=== PATIENT | female | born 1965 | race Caucasian/White ===

== ENCOUNTER 2016-06-16 20:37 | Emergency (ER) | payer OTHER ==
--- NOTE | ~2016-06-16 | CR230 ---
[facility] of [facility] & [facility] RADIOLOGY TEXT RESULTS PATIENT: JOSE VITAL LOCATION: [facility] : 61 UNIT #: [id number] AGE: [address]: HOUSTON JONES APRN SEX: F ORDER DR: [id number] [facility] [address] [place], [place] [address] [id number] E MR#: [id number] Acc #: [id number] NAME: JOSE VITAL : 1965 SEX: F STUDY DATE/TIME: 06/16/2016 19:49 UNIT: [facility] ROOM: STUDY DESCRIPTION: CR Shoulder Min 2 View Rt Attending Physician: Houston Jones Aprn Ordering Physician: Houston Jones Aprn Primary Care Physician: Augustine Sosa M.D. MEDICAL IMAGING REPORT This report is preliminary unless electronic signature is present EXAM Right shoulder radiograph, 06/16/2013. INDICATION Severe right shoulder pain and decreased range of motion. Fall at home. FINDINGS 2 views of the right shoulder in internal and external rotation. There is a comminuted, however, minimally displaced fracture involving the proximal right humerus. There is a transverse fracture through the surgical neck. The greater tuberosity is avulsed. The humeral head articulates normally with the glenoid. There is some mild osteoarthropathy at the AC joint. IMPRESSION Comminuted fracture of the proximal right humerus (near 3 part). Dictated by... Adam Pearson M.D. THIS IS AN ELECTRONICALLY VERIFIED REPORT Adam Pearson M.D. at 06/17/2016 12:15 PM FRANCIS/emelyn TD: 06/17/2016 10:16 JOB #: [id number] MEDICAL IMAGING REPORT COPY
[~2016-06-16 20:37] MED LIST: ADVAIR 250-501 EAC1 IH; CARVEDILOL12.5 MG PO; DESYREL100 MG PO; LITHIUM PO; MARYS MAGIC BUTT CRE; NIFEREX-150 FO150 MG PO; PREVACID PO; SEROQUEL PO; ZYRTEC10 M2 PO
[2016-09-24] MEDS ORDERED: VENTOLIN (08:44)
[2016-09-24] MEDS ORDERED: ADVAIR 250-501 EAC1 INH (08:44)
[2016-09-24] MEDS ORDERED: AMBIEN10 MG PO (08:45)
[2016-09-24] MEDS ORDERED: ZOLOFT100 MG PO (08:45)
[2016-09-24] MEDS ORDERED: LITHIUM PO (08:45)
[2016-09-24] MEDS ORDERED: ZYRTEC10 M1 PO (08:45)
[2016-09-24] MEDS ORDERED: IBUPROFEN800 MG PO (08:46)
[2016-09-24] MEDS ORDERED: LORTAB 10-3251 EACH PO (08:46)
[2016-09-24] MEDS ORDERED: HUMIRA CRO40 MG/0.8 (08:47)
[2016-09-24] MEDS ORDERED: MULTIPLE VITAM1 EAC1 (08:48)
== END 2016-06-16 21:45 | disposition home or self-care (01) ==
LOC: CFTX 20:37
DX: S42.201A Unspecified fracture of upper end of right humerus, initial encounter for closed fracture (principal); S42.211A Unspecified displaced fracture of surgical neck of right humerus, initial encounter for closed fracture; I10 Essential (primary) hypertension; K21.9 Gastro-esophageal reflux disease without esophagitis; F31.9 Bipolar disorder, unspecified; F17.210 Nicotine dependence, cigarettes, uncomplicated; W18.30XA Fall on same level, unspecified, initial encounter; Y92.009 Unspecified place in unspecified non-institutional (private) residence as the place of occurrence of the external cause
CPT/HCPCS: 73030; 99283

== ENCOUNTER 2016-06-20 17:20 | Emergency (ER) | payer OTHER ==
--- NOTE | ~2016-06-20 | CR63 ---
[facility] A Service of [facility] & [facility] RADIOLOGY TEXT RESULTS PATIENT: JOSE VITAL LOCATION: [facility] : 61 UNIT #: [id number] AGE: [address]: Natacha Soto SEX: F ORDER DR: [id number] [facility] [address] [place], [place] [address] [id number] E MR#: [id number] Acc #: [id number] NAME: JOSE VITAL : 1965 SEX: F STUDY DATE/TIME: 06/20/2016 16:43 UNIT: [facility] ROOM: STUDY DESCRIPTION: CR Chest 2 View Attending Physician: Natacha Soto P.A.-C. Ordering Physician: Natacha Soto P.A.-C. Primary Care Physician: Augustine Sosa M.D. MEDICAL IMAGING REPORT This report is preliminary unless electronic signature is present EXAM Chest x-ray 2 views, 06/20/2016 HISTORY Chest pain, short of air, cough, congestion and wheezing starting 2-5 weeks ago. History of a right humerus fracture. COMMENT 2 views of the chest are reviewed. Comparison 08/09/2014. Partly seen is a fracture of the surgical neck of the humerus on the right consistent with provided history. The heart size is normal. There is no acute congestive failure or pneumothorax. There is no pleural effusion. There are vkqx-of-qqjhdnvf thoracic degenerative changes. No pleural effusion is suspected. IMPRESSION 1. No active disease is seen in the chest. 2. Partly seen is the patient's known right proximal humerus fracture. There are multiple healed bilateral rib fractures with some deformity more apparent on the left than the right. These are chronic. Dictated by... Violette Ashley M.D. THIS IS AN ELECTRONICALLY VERIFIED REPORT Violette Ashley M.D. at 06/22/2016 7:46 AM WANDY/mojgan TD: 06/21/2016 22:49 JOB #: [id number] [facility] A Service of [facility] & [facility] RADIOLOGY TEXT RESULTS PATIENT: JOSE VITAL LOCATION: [facility] : 61 UNIT #: [id number] AGE: [address]: Natacha Soto SEX: F ORDER DR: MEDICAL IMAGING REPORT COPY
[2016-09-24] MEDS ORDERED: VENTOLIN (08:44)
[2016-09-24] MEDS ORDERED: ADVAIR 250-501 EAC1 INH (08:44)
[2016-09-24] MEDS ORDERED: ZOLOFT100 MG PO (08:45)
[2016-09-24] MEDS ORDERED: LITHIUM PO (08:45)
[2016-09-24] MEDS ORDERED: ZYRTEC10 M1 PO (08:45)
[2016-09-24] MEDS ORDERED: AMBIEN10 MG PO (08:45)
[2016-09-24] MEDS ORDERED: IBUPROFEN800 MG PO (08:46)
[2016-09-24] MEDS ORDERED: LORTAB 10-3251 EACH PO (08:46)
[2016-09-24] MEDS ORDERED: HUMIRA CRO40 MG/0.8 (08:47)
[2016-09-24] MEDS ORDERED: MULTIPLE VITAM1 EAC1 (08:48)
== END 2016-06-20 18:25 | disposition home or self-care (01) ==
LOC: CFTX 17:20
DX: J20.9 Acute bronchitis, unspecified (principal); J45.909 Unspecified asthma, uncomplicated; I10 Essential (primary) hypertension; F31.9 Bipolar disorder, unspecified; F42.9 Obsessive-compulsive disorder, unspecified; F17.210 Nicotine dependence, cigarettes, uncomplicated; Z90.49 Acquired absence of other specified parts of digestive tract; Z98.890 Other specified postprocedural states; Z88.8 Allergy status to other drugs, medicaments and biological substances
CPT/HCPCS: 71020; 94640; 99283

== ENCOUNTER → 2016-08-18 | Outpatient (CLI) | payer OTHER ==
[~2016-08-18] MED LIST changes: +ADVAIR 250-501 EAC1 INH; +AMBIEN10 MG PO; +HUMIRA CRO40 MG/0.8; +IBUPROFEN800 MG PO; +LORTAB 10-3251 EACH PO; +MULTIPLE VITAM1 EAC1; +VENTOLIN; +ZOLOFT100 MG PO; +ZYRTEC10 M1 PO
--- NOTE | ~2016-08-18 | MY11 ---
[facility] A Service of [facility] / [facility] RADIOLOGY TEXT RESULTS PATIENT: JOSE VITAL LOCATION: [facility] : 61 UNIT #: [id number] AGE: [address]: Augustine Sosa MD SEX: F ORDER DR: [id number] [facility] [address] [place], [place] [address] [id number] O MR#: [id number] Acc #: [id number] NAME: JOSE VITAL. : 1965 SEX: F STUDY DATE/TIME: 08/18/2016 10:35 UNIT: [facility] ROOM: STUDY DESCRIPTION: MY Mammogram Screening Dig Jose Attending Physician: Augustine Soas M.D. Ordering Physician: Augustine Sosa M.D. Primary Care Physician: Augustine Sosa M.D. MEDICAL IMAGING REPORT This report is preliminary unless electronic signature is present EXAM Digital screening mammogram, 08/18/2016 HISTORY 51 year old woman no risk elevation. Annual screening. COMPARISON Mammograms date to 11/18/2007 with most recent screening 11/16/2014. FINDINGS Digital imaging of each breast was completed utilizing screening protocol. Review includes FDA-approved CAD device. Breast parenchyma is dense and confined to upper outer quadrants of each breast. Slight dominance is again noted on the right. I see no interval occurring mass. There are no suspicious microcalcifications and no architectural deformity. IMPRESSION Stable benign mammogram. Annual screening recommended. Patients over the age of 40 are entered into a reminder system with target due date for the next mammogram. A result letter will also be sent to the patient. BIRADS: 2 Benign Finding Dictated by... Porter Chavarria M.D. THIS IS AN ELECTRONICALLY VERIFIED REPORT Porter Chavarria M.D. at 08/18/2016 2:01 PM Buddy TD: 08/18/2016 12:59 [facility] A Service [facility] RADIOLOGY TEXT RESULTS PATIENT: JOSE VITAL LOCATION: [place] #: [id number] : 61 UNIT #: [id number] AGE: [address]: Augustine Sosa MD SEX: F ORDER DR: JOHAN #: [id number] MEDICAL IMAGING REPORT Page 1 of 1 COPY
== END | disposition home or self-care (01) ==
LOC: CWCC 10:25
DX: Z12.31 Encounter for screening mammogram for malignant neoplasm of breast (principal)
CPT/HCPCS: G0202

== ENCOUNTER → 2016-09-24 | Day surgery (SDC) | payer OTHER ==
--- NOTE | ~2016-09-24 | OR ---
Unit #: [id number] #: [id number] Patient: JOSE VITAL [id number] [address] [place], [place] [address] [id number] O MR#: [id number] NAME: JOSE VITAL ROOM: Date of Procedure: 09/24/2016 Admission Date: 09/24/2016 Surgeon: Fred Fulton M.D. : 1965 Attending Physician: Fred Fulton M.D. Primary Care Physician: Augustine Sosa M.D. OPERATIVE REPORT PROCEDURE PERFORMED Colonoscopy to cecum. INDICATIONS FOR PROCEDURE A 51-year-old with average risk for colorectal cancer. MEDICATIONS Monitored anesthesia. POSTOPERATIVE FINDINGS 1. Colonoscopy completed to cecum. Good prep. 2. No polyps or masses. 3. Small hemorrhoids. PLAN Repeat colonoscopy in 10 years. DESCRIPTION OF PROCEDURE The patient was explained of the procedure, risks, and benefits along with the risks and benefits of anesthesia. She was brought to the endoscopy room. Propofol anesthesia was given. Rectal exam was done, which was normal. Colonoscope was lubricated, passed up the rectum, advanced under direct vision all the way to the cecum. Cecum was identified by ileocecal valve and appendiceal orifice. I then started to pull the scope out carefully looking. No polyps, masses, or colitis were seen. Mucosa was normal and heathy. She tolerated it well. No major complications were seen. Dictated by... Bob Solis/bryce TD: 09/24/2016 17:17 JOB #: [id number] CC: Jakob Nicolas M.D. Unit #: [id number] #: [id number] Patient: JOSE VITAL OPERATIVE REPORT Page 1 of 1 X Fred Fulton MD X PROCEDURE OPERATIVE NOTE
== END | disposition home or self-care (01) ==
LOC: COPS 07:56
PROVIDERS: Internal Medicine
PROC: 0DJD8ZZ Inspection of Lower Intestinal Tract, Via Natural or Artificial Opening Endoscopic (ICD-10-PCS; principal; 2016-09-24 09:00)
DX: Z12.11 Encounter for screening for malignant neoplasm of colon (principal); K64.9 Unspecified hemorrhoids; K21.9 Gastro-esophageal reflux disease without esophagitis; E66.9 Obesity, unspecified; Z68.37 Body mass index [BMI] 37.0-37.9, adult; D64.9 Anemia, unspecified; J44.9 Chronic obstructive pulmonary disease, unspecified; J45.909 Unspecified asthma, uncomplicated; F17.200 Nicotine dependence, unspecified, uncomplicated; Z79.899 Other long term (current) drug therapy; Z79.1 Long term (current) use of non-steroidal anti-inflammatories (NSAID); Z87.09 Personal history of other diseases of the respiratory system; Z88.8 Allergy status to other drugs, medicaments and biological substances; Z90.49 Acquired absence of other specified parts of digestive tract; Z98.890 Other specified postprocedural states
CPT/HCPCS: J2250

== ENCOUNTER 2016-10-06 02:36 | Emergency (ER) | payer OTHER ==
--- NOTE | ~2016-10-06 | CR127 ---
[facility] A Service of [facility] & [facility] RADIOLOGY TEXT RESULTS PATIENT: JOSE VITAL LOCATION: [facility] : 61 UNIT #: [id number] AGE: [address]: HOUSTON JONES APRN SEX: F ORDER DR: [id number] [facility] [address] [place], [place] [address] [id number] E MR#: [id number] Acc #: [id number] NAME: JSOE VITAL : 1965 SEX: F STUDY DATE/TIME: 10/06/2016 3:16 UNIT: [facility] ROOM: STUDY DESCRIPTION: CR Foot Complete Min 3 View Rt Attending Physician: Houston Jones Aprn Ordering Physician: Houston Jones Aprn Primary Care Physician: Augustine Sosa M.D. MEDICAL IMAGING REPORT This report is preliminary unless electronic signature is present EXAM Right foot. INDICATIONS Pain and swelling. FINDINGS Three views of the right foot without comparison. There is some mild soft tissue swelling over the dorsum of the foot. There is no acute fracture or dislocation. There is some mild arthritis involving the midfoot and the first metatarsophalangeal joint. There is a moderate arthritis at the ankle and the subtalar joint. IMPRESSION 1. No acute findings. 2. 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 More mild arthritis in the remainder of the foot. Dictated by... Adam Pearson M.D. THIS IS AN ELECTRONICALLY VERIFIED REPORT Adam Pearson M.D. at 10/06/2016 10:48 PM FRANCIS/zara TD: 10/06/2016 20:49 JOB #: [id number] MEDICAL IMAGING REPORT Page 1 of 1 COPY
== END 2016-10-06 04:55 | disposition home or self-care (01) ==
LOC: CED 02:36
DX: S93.601A Unspecified sprain of right foot, initial encounter (principal); K21.9 Gastro-esophageal reflux disease without esophagitis; I10 Essential (primary) hypertension; F42.9 Obsessive-compulsive disorder, unspecified; F31.9 Bipolar disorder, unspecified; J45.909 Unspecified asthma, uncomplicated; F17.210 Nicotine dependence, cigarettes, uncomplicated; Z79.899 Other long term (current) drug therapy; Z88.8 Allergy status to other drugs, medicaments and biological substances; X58.XXXA Exposure to other specified factors, initial encounter; Y93.01 Activity, walking, marching and hiking; Y92.009 Unspecified place in unspecified non-institutional (private) residence as the place of occurrence of the external cause
CPT/HCPCS: 29540; 73630; 94640; 99283

== ENCOUNTER 2016-12-16 01:19 | Emergency (ER) | payer OTHER ==
--- NOTE | ~2016-12-16 | EKG ---
PATIENT: JOSE VITAL UNIT #: [id number] Ventricular Rate: 94 BPM Atrial Rate: 94 BPM P-R Interval: 144 ms QRS Duration: 74 ms Q-T Interval: 354 ms QTC Calculation(Bezet): 442 ms P Baker: 28 degrees Calculated R Baker: 0 degrees Calculated T Baker: 12 degrees Diagnosis Line: Normal sinus rhythm Diagnosis Line: Minimal voltage criteria for LVH, may be normal Diagnosis Line: variant Diagnosis Line: Otherwise normal ECG Diagnosis Line: When compared with ECG of 06-AUG-2014 05:24, Diagnosis Line: Inferior infarct is now Present Diagnosis Line: Confirmed by DEQUAN IBARRA MD ([id number]) on 12/16/2016 Diagnosis Line: 7:38:42 PM INTERPRETING MD: STACEY MATHEWS
--- NOTE | ~2016-12-16 | CR72 ---
[facility] A Service of [facility] & [facility] RADIOLOGY TEXT RESULTS PATIENT: JOSE VITAL LOCATION: [facility] : 61 UNIT #: [id number] AGE: [address]: Gianfranco Weir MD SEX: F ORDER DR: [id number] [facility] [address] [place], [place] [address] [id number] E MR#: [id number] Acc #: [id number] NAME: JOSE VITAL : 1965 SEX: F STUDY DATE/TIME: 12/16/2016 02:14 UNIT: [facility] ROOM: STUDY DESCRIPTION: CR Chest Single View Portable Attending Physician: Gianfranco Weir M.D. Ordering Physician: Jj Sanchez M.D. Primary Care Physician: Augustine Sosa M.D. MEDICAL IMAGING REPORT This report is preliminary unless electronic signature is present EXAM Portable chest, 12/16 at 02:14 hours INDICATION Shortness of air, cough and congestion today. FINDINGS AP portable chest compared with 06/20/2016. Cardiac and mediastinal contours are normal. There is mild elevation of the right hemidiaphragm that is unchanged. Lungs are clear. There is no pneumothorax. There are multiple old left side rib fractures. There is degenerative disease in the shoulders and spine. IMPRESSION No active disease and no significant interval change. Dictated by... Timmy Tapia Jr., M.D. THIS IS AN ELECTRONICALLY VERIFIED REPORT Timmy Tapia Jr., M.D. at 12/16/2016 8:32 PM ZACK/eladia TD: 12/16/2016 12:25 JOB #: [id number] MEDICAL IMAGING REPORT Page 1 of 1 COPY
[2016-12-16 03:29] LABS: BASOPHIL% 0.4 % (0-2.5); EOSINOPHIL# 0.2 X10e3 (0-0.7); EOSINOPHIL% 3.5 % (0.0-7.0); HEMATOCRIT 41.2 % (35.0-45.0); HEMOGLOBIN 13.8 gm/dL (12.0-16.0); LYMPHOCYTE% 29.2 % (17.0-45.0); MEAN CELL VOLUME 89.6 FL (83-96); MEAN CORPUSCULAR HGB CONC 33.4 g/dL (30-36); MEAN PLATELET VOLUME 7.6 FL (6.5-11.5); MONOCYTE# 0.2 X10e3 (0-1.0); MONOCYTE% 2.4 % (3.0-12.0); NEUTROPHIL# 4.5 X10e3 (1.5-7.1); NEUTROPHIL% 64.5 % (40-75); PLATELET COUNT 235 X10e3 (140-420); RED CELL DISTRIBUTION WIDTH 14.6 % (11.0-15.5)
[2016-12-16 03:31] LABS: DIFF IND NO
[2016-12-16 03:58] LABS: POC - CKMB <1.0 ng/mL (0.0-7.9); POC - TROPONIN <0.05 ng/mL (<=0.05)
[2016-12-16 04:08] LABS: CALCIUM SERUM 9.1 mg/dL (8.4-10.2); CREATININE SERUM 0.8 mg/dL (0.6-1.4); GLOM FILT RATE Estimated 84.2 mL/min (>60); POTASSIUM 3.3 mmol/L (3.5-5.1)
== END 2016-12-16 11:28 | disposition home or self-care (01) ==
LOC: CED 01:19
PROVIDERS: Emergency Medicine
DX: J45.901 Unspecified asthma with (acute) exacerbation (principal); F10.129 Alcohol abuse with intoxication, unspecified; K21.9 Gastro-esophageal reflux disease without esophagitis; Z90.49 Acquired absence of other specified parts of digestive tract; F17.200 Nicotine dependence, unspecified, uncomplicated; F31.9 Bipolar disorder, unspecified; Z88.8 Allergy status to other drugs, medicaments and biological substances
CPT/HCPCS: 36415; 71010; 80048; 82553; 84484; 85025; 93005; 99285; G0480